=== PATIENT | male | born 1935 | race Caucasian/White ===

== ENCOUNTER 2017-04-19 23:40 | Inpatient (IN) | payer OTHER, MEDICARE ==
[~2017-04-19] VITALS: Ht 185.4 cm; Wt 128.3 kg
[2017-04-20 03:02] VITALS: BP 139/81; PULSE 109; RESP 20; TEMP 97.7
[2017-04-20] MEDS ORDERED: ALUMINUM/MAGNESIUM/SIMETH 30 ML CUP PO PRN (03:15)
[2017-04-20] MEDS ORDERED: LORazepam 2 MG/ML VIAL - age > 65 yrs IM PRN (03:15)
[2017-04-20] MEDS ORDERED: MAGNESIUM HYDROXIDE SUSP 30 ML CUP PO PRN (03:15)
[2017-04-20] MEDS ORDERED: LORazepam 0.5 MG TAB age > 65 yrs PO PRN (03:15)
[2017-04-20 05:35] VITALS: BP 166/84; PULSE 89; RESP 16; TEMP 97.1
[2017-04-20 10:16] LABS: AUTOMATED NEUTROPHIL # 4.3 TH/MM3 (1.8-7.7); BASOPHIL % 0.6 % (0.0-2.0); EOSINOPHIL # 0.3 TH/MM3 (0-0.4); EOSINOPHIL % 5.3 % (0.0-4.0); HEMATOCRIT 36.7 % (39.0-51.0); HEMO FLAGS DIFF FINAL; LYMPH % 19.7 % (9.0-44.0); LYMPHOCYTE # 1.3 TH/MM3 (1.0-4.8); MEAN CELL VOLUME 93.8 FL (80.0-100.0); MEAN CORPUSCULAR HEMOGLOBIN 31.5 PG (27.0-34.0); MEAN CORPUSCULAR HGB CONC 33.6 % (32.0-36.0); MONO % 8.6 % (0.0-8.0); NEUT % 65.8 % (16.0-70.0); PLATELET COUNT 314 TH/MM3 (150-450); RED BLOOD COUNT 3.91 MIL/MM3 (4.50-5.90); WHITE BLOOD COUNT 6.5 TH/MM3 (4.0-11.0)
[2017-04-20 10:33] LABS: ANION GAP 10 MEQ/L (5-15); AST (GOT) 26 U/L (15-37); BICARBONATE 25.9 MEQ/L (21.0-32.0); BLOOD UREA NITROGEN 13 MG/DL (7-18); CHLORIDE 103 MEQ/L (98-107); GLOMERULAR FILTRATION RATE 40 ML/MIN (>89); POTASSIUM 3.9 MEQ/L (3.5-5.1); SODIUM (NA) 139 MEQ/L (136-145)
[2017-04-20 10:34] LABS: ALT (GPT) 29 U/L (12-78)
[2017-04-20 10:44] LABS: ALKALINE PHOSPHATASE 109 U/L (45-117); HDL CHOLESTEROL 40.6 MG/DL (40.0-60.0); LDL CHOLESTEROL 131 MG/DL (0-99); TOTAL BILIRUBIN ADULT 0.4 MG/DL (0.2-1.0)
[2017-04-20] MEDS ORDERED: SERTRALINE HCL 50 MG TAB PO ONE (13:00)
[2017-04-20] MEDS ORDERED: PILL SPLITTER OTHER PRN (13:00)
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
--- NOTE | 2017-04-20 13:07 | EKG ---
Date Performed: 04/20/2017 Time Performed: 11:11:41 PTAGE: 81 years EKG: Sinus rhythm WITH FIRST DEGREE AV BLOCK PATTERN CONSISTENT WITH PULMONARY DISEASE LEFT ANTERIOR FASCICULAR BLOCK ABNORMAL ECG NO PREVIOUS TRACING DOCTOR: Juanpablo Em Interpretating Date/Time 04/20/2017 13:06:38
--- NOTE | 2017-04-20 13:29 | PD.CONS ---
[facility] Reason for Consult Medical management Primary Care Physician Terry Blancas D.O. Diagnoses: History of Present Illness 81 year-old male with past medical history of hypertension, diabetes was brought in and admitted to inpatient psychiatry under [place] act for suicidal ideation. Patient states he has been trying to harm himself however denies any homicidal ideation. He owns firearms in his apartment. Reported history of diabetes, hypertension for which he is under the care of his PCP however patient does not know which medication he is on. He currently denies any GI bleed, hemoptysis, hematuria. He also denies any chest pain or shortness of breath. Review of Systems Except as stated in HPI: all other systems reviewed are Neg Past Family Social History Allergies: Coded Allergies: No Known Allergies (Verified Allergy, Unknown, 04/20/17) Past Medical History Diabetes type 2 Hypertension Past Surgical History Hernia repair Right Toe amputation Abdominal surgery Social History Former smoker, reports social alcohol intake. Lives alone Physical Exam Vital Signs Vital Signs Date Time Temp Pulse Resp B/P (MAP) Pulse Ox O2 Delivery O2 Flow Rate FiO2 04/20/17 05:35 97.1 89 16 166/84 (111) 04/20/17 03:02 97.7 109 20 139/81 (100) Physical Exam GENERAL: This is a well-nourished, well-developed patient, in no apparent distress. SKIN: No rashes, ecchymoses or lesions. Cool and dry. HEAD: Atraumatic. Normocephalic. No temporal or scalp tenderness. EYES: Pupils equal round and reactive. Extraocular motions intact. No scleral icterus. No injection or drainage. ENT: Nose without bleeding, purulent drainage or septal hematoma. Throat without erythema, tonsillar hypertrophy or exudate. Uvula midline. Airway patent. NECK: Trachea midline. No JVD or lymphadenopathy. Supple, nontender, no meningeal signs. CARDIOVASCULAR: Regular rate and rhythm without murmurs, gallops, or rubs. RESPIRATORY: Clear to auscultation. Breath sounds equal bilaterally. No wheezes , rales, or rhonchi. GASTROINTESTINAL: Abdomen soft, non-tender, nondistended. No hepato-splenomegaly , or palpable masses. No guarding. MUSCULOSKELETAL: Extremities without clubbing, cyanosis, or edema. No joint tenderness, effusion, or edema noted. No calf tenderness. Negative Homans sign bilaterally. NEUROLOGICAL: Awake and alert. Cranial nerves II through XII intact. Motor and sensory grossly within normal limits. Five out of 5 muscle strength in all muscle groups. Normal speech. Laboratory Laboratory Tests Test 04/20/17 08:00 White Blood Count 6.5 Red Blood Count 3.91 Hemoglobin 12.3 Hematocrit 36.7 Mean Corpuscular Volume 93.8 Mean Corpuscular Hemoglobin 31.5 Mean Corpuscular Hemoglobin Concent 33.6 Red Cell Distribution Width 14.0 Platelet Count 314 Mean Platelet Volume 8.7 Neutrophils (%) (Auto) 65.8 Lymphocytes (%) (Auto) 19.7 Monocytes (%) (Auto) 8.6 Eosinophils (%) (Auto) 5.3 Basophils (%) (Auto) 0.6 Neutrophils # (Auto) 4.3 Lymphocytes # (Auto) 1.3 Monocytes # (Auto) 0.6 Eosinophils # (Auto) 0.3 Basophils # (Auto) 0.0 CBC Comment DIFF FINAL Differential Comment Blood Urea Nitrogen 13 Creatinine 1.65 Random Glucose 185 Total Protein 6.5 Albumin 2.5 Calcium Level 8.8 Alkaline Phosphatase 109 Aspartate Amino Transf (AST/SGOT) 26 Alanine Aminotransferase (ALT/SGPT) 29 Total Bilirubin 0.4 Sodium Level 139 Potassium Level 3.9 Chloride Level 103 Carbon Dioxide Level 25.9 Anion Gap 10 Estimat Glomerular Filtration Rate 40 Triglycerides Level 202 Cholesterol Level 212 LDL Cholesterol 131 HDL Cholesterol 40.6 Cholesterol/HDL Ratio 5.22 Thyroid Stimulating Hormone 3rd Gen 11.800 Result Diagram: 04/20/17 0800 04/20/17 0800 Assessment and Plan Assessment and Plan 81 year-old man with Adjustment disorder Suicidal ideation Management per psychiatry Continue current [place] act History of diabetes type 2 Check hemoglobin A1c Start insulin sliding scale Obtain from patient's pharmacy medication list Hypothyroidism Start patient on low-dose Synthroid Check free T4 Hypertension Start clonidine when necessary Obtain from patient's pharmacy medication list Hyperlipidemia LDL 131 Check LFTs and then start statin DVT prophylaxis: Encourage ambulation Request from the nurse that patient's medication list be updated Thank you for this consultation Code Status Full code Discussed Condition With Patient, Howard Xiong RN, MD Apr 20, 2017 13:29
[2017-04-20] MEDS ORDERED: RESP: ALBUTEROL 2.5 MG/IPRATROPIUM 0.5 MG NEB (PRN) NEB (13:30)
[2017-04-20] MEDS ORDERED: DEXTROSE 50% IN WATER 50 ML VIAL(D50) IV PUSH PRN (13:30)
[2017-04-20] MEDS ORDERED: cloNIDine HCL 0.1 MG TAB PO PRN (13:30)
[2017-04-20] MEDS ORDERED: GLUCAGON 1 MG/ML VIAL OTHER PRN (13:30)
[2017-04-20] MEDS ORDERED: FURO1TAB62 PO (13:52)
[2017-04-20] MEDS ORDERED: PAXI30TA7 PO (13:52)
[2017-04-20] MEDS ORDERED: METF1000 PO (13:52)
[2017-04-20] MEDS ORDERED: GABA600T PO (13:52)
[2017-04-20] MEDS ORDERED: GABA300C5 PO (13:52)
[2017-04-20] MEDS ORDERED: LEVEMIR SQ (13:53)
[2017-04-20 14:34] VITALS: BP 135/70; PULSE 72
[2017-04-20] MEDS: INSULIN ASPART SUPPLEMENTAL SCALE SQ SCH ×2 (16:06→20:36)
[2017-04-20] MEDS ORDERED: metFORMIN HCL 500 MG TAB PO SCH (18:00)
[2017-04-20 18:16] VITALS: BP 120/60; PULSE 93; RESP 16; TEMP 98.5; O2SAT 98
[2017-04-20] MEDS: INSULIN DETEMIR 100 UNITS/ML VIAL SQ SCH (20:36)
[2017-04-20] MEDS: GABAPENTIN 300 MG CAP PO SCH (20:37)
[2017-04-20] MEDS ORDERED: diphenhydrAMINE HCL 50 MG CAP PO PRN (21:00)
[2017-04-21 05:34] VITALS: BP 149/88; PULSE 85; RESP 16; TEMP 98; O2SAT 97
[2017-04-21] MEDS: LEVOTHYROXINE SODIUM 88 MCG TAB PO SCH (06:03)
[2017-04-21] MEDS: INSULIN ASPART SUPPLEMENTAL SCALE SQ SCH ×4 (08:00→20:40)
[2017-04-21] MEDS: FUROSEMIDE 20 MG TAB PO SCH (08:33)
[2017-04-21] MEDS: GABAPENTIN 300 MG CAP PO SCH ×2 (08:33→20:40)
[2017-04-21] MEDS: SERTRALINE HCL 50 MG TAB PO SCH (08:33)
[2017-04-21] MEDS: INSULIN DETEMIR 100 UNITS/ML VIAL SQ SCH ×2 (08:33→20:39)
--- NOTE | 2017-04-21 14:13 | HHI.PR ---
Subjective Remarks patient seen and examined complains of weakness and no shortness of breath Good appetite ambulating fine Objective Vitals Vital Signs Date Time Temp Pulse Resp B/P (MAP) Pulse Ox O2 Delivery O2 Flow Rate FiO2 04/21/17 05:34 98.0 85 16 149/88 (108) 97 04/20/17 18:16 98.5 93 16 120/60 (80) 98 04/20/17 14:34 72 135/70 (91) I/O 04/20/17 04/20/17 04/20/17 04/21/17 04/21/17 04/21/17 07:00 15:00 23:00 07:00 15:00 23:00 Intake Total 480 ml Balance 480 ml Intake Oral 480 ml Result Diagram: 04/20/17 0800 04/20/17 0800 Objective Remarks GENERAL: NAD SKIN: Warm and dry. HEAD: Normocephalic. EYES: No scleral icterus. No injection or drainage. NECK: Supple, trachea midline. No JVD or lymphadenopathy. CARDIOVASCULAR: Regular rate and rhythm without murmurs, gallops, or rubs. RESPIRATORY: Breath sounds equal bilaterally. No accessory muscle use. GASTROINTESTINAL: Abdomen soft, non-tender, nondistended. MUSCULOSKELETAL: No cyanosis, or edema. BACK: Nontender without obvious deformity. No CVA tenderness. A/P Assessment and Plan 81 year-old man with Adjustment disorder Suicidal ideation Management per psychiatry Continue current [place] act History of diabetes type 2 Check hemoglobin A1c Continue insulin sliding scale Hypothyroidism On low-dose Synthroid Check free T4 Hypertension continue clonidine when necessary Hyperlipidemia LDL 131 Check LFTs and then start statin DVT prophylaxis: Encourage ambulation Howard To MD Apr 21, 2017 14:13
[2017-04-21 15:52] LABS: HEMOGLOBIN A1a 1.3 %; HEMOGLOBIN A1b 1.3 %; HEMOGLOBIN Ao 75.7 %; HEMOGLOBIN F 1.9 %; HEMOGLOBIN LA1C 2.6 %; HEMOGLOBIN P3 4.2 %
[2017-04-21] MEDS ORDERED: hydrOXYzine HCL 50 MG TAB PO PRN (16:00)
--- NOTE | 2017-04-21 16:00 | HHI.PYPN ---
Subjective Remarks Patient initial psychiatric evaluation the by Dr. Mcmahon, I have completed the initial psychiatric admission template. Patient seen by me in day room with nurse Dax, patient's is alert fairly well oriented white male appears stated age sitting calmly in his Jo[place] chair. He acknowledges his depression acknowledges is suicidal intent that he would take the suicide pill if offered. She has been depressed since the of his and from 1997. They have no children his own support is a brother who lives nearby. He is compliant with his medications. For now continue treatment Review of Systems Except as stated in HPI: all other systems reviewed are Neg Mental Status Examination Appearance: Disheveled Orientation: Person, Place Speech: Unremarkable Language: Neologism Fund of Knowledge: Adequate Attention and Concentration: Adequate Memory: Unremarkable Mood: Sad Affect: Sad Thought Process & Associations: Intact, Linear Thought Content: Appropriate Hallucination Type: None Delusion Type: None Suicidal Ideation: Yes Suicidal Plan: No Suicidal Intention: Yes Homicidal Ideation: No Homicidal Plan: No Homicidal Intention: No Insight: Fair Judgment: Impulsive Results Labs Test 04/21/17 13:30 Vitals/IOs Vital Signs Date Time Temp Pulse Resp B/P (MAP) Pulse Ox O2 Delivery O2 Flow Rate FiO2 04/21/17 05:34 98.0 85 16 149/88 (108) 97 Assessment & Plan Problem List: (1) Severe episode of recurrent major depressive disorder, without psychotic features ICD Codes: F33.2 - Major depressive disorder, recurrent severe without psychotic features Assessment & Plan Estimated LOS: days patient depressed and suicidal would take the suicide pill if offered. Compliant medications. Justification for Cont. Inpt. At this time patient will decompensate and placed in a lower level of care Discharge Planning Patient wishes to inquire as to when CUSTODIAL or some type of supportive housing Request HC Surrog/Guard Advoc?: No Terry Plunkett MD Apr 21, 2017 15:59
--- NOTE | 2017-04-21 16:08 | PD.TTN ---
Patient Problems 1. Discharge planning 2. Medication compliance 3. Knowledge deficit 4. Lack of coping skills Progress Toward Goals Provider Present: Dr. Daren Michel Provider Input: Patient is a new admission and has not been evaluated yet. Psychiatric Counselors Present: RODDY Espino Psych Therapist Input: Patient is a new admission and biopsychosocial assessment will be completed today. Group Spec/RT/OT/BATRES Present: MEDARDO Oneil Documentation Scribe: RODDY Espino Date Resolved: Apr 21, 2017 Caroline Lee Apr 21, 2017 16:08
[2017-04-21 18:00] VITALS: BP 123/58; PULSE 74; RESP 17; TEMP 97.5; O2SAT 99
[2017-04-22 05:18] VITALS: BP 135/66; PULSE 84; RESP 18; TEMP 97.8; O2SAT 97
[2017-04-22] MEDS: LEVOTHYROXINE SODIUM 88 MCG TAB PO SCH (05:47)
[2017-04-22] MEDS: INSULIN ASPART SUPPLEMENTAL SCALE SQ SCH ×4 (08:00→20:34)
[2017-04-22] MEDS: SERTRALINE HCL 50 MG TAB PO SCH (09:43)
[2017-04-22] MEDS: FUROSEMIDE 20 MG TAB PO SCH (09:43)
[2017-04-22] MEDS: GABAPENTIN 300 MG CAP PO SCH ×2 (09:44→20:19)
[2017-04-22] MEDS: ATORVASTATIN 10 MG TAB PO SCH (09:44)
[2017-04-22] MEDS: INSULIN DETEMIR 100 UNITS/ML VIAL SQ SCH (09:50)
--- NOTE | 2017-04-22 13:21 | HHI.PYPN ---
Subjective Remarks Patient seen in the day room with nurse Dax and counselor Caroline, chart review patient compliant medication. Patient is calm pleasant somewhat diffusely confused but no behavioral issues. Still verifying his suicidal ideation intent. Feels that there is nothing left for him. That he has done everything in the world that he wanted to do. Review of Systems Except as stated in HPI: all other systems reviewed are Neg Mental Status Examination Appearance: Disheveled Orientation: Person, Place Speech: Unremarkable Language: Neologism Fund of Knowledge: Adequate Attention and Concentration: Adequate Memory: Unremarkable Mood: Sad Affect: Sad Thought Process & Associations: Intact, Linear Thought Content: Appropriate Hallucination Type: None Delusion Type: None Suicidal Ideation: Yes Suicidal Plan: No Suicidal Intention: Yes Homicidal Ideation: No Homicidal Plan: No Homicidal Intention: No Insight: Fair Judgment: Impulsive Results Labs Test 04/21/17 13:30 Vitals/IOs Vital Signs Date Time Temp Pulse Resp B/P (MAP) Pulse Ox O2 Delivery O2 Flow Rate FiO2 04/22/17 05:18 97.8 84 18 135/66 (89) 97 Intake and Output 04/22/17 04/22/17 04/23/17 08:00 16:00 00:00 Intake Total 1 ml Balance 1 ml Assessment & Plan Problem List: (1) Severe episode of recurrent major depressive disorder, without psychotic features ICD Codes: F33.2 - Major depressive disorder, recurrent severe without psychotic features Assessment & Plan Estimated LOS: days patient continues depressed and suicidal, compliant medications. For now continue treatment Justification for Cont. Inpt. At this time patient would state the place to the lower level of care Discharge Planning Considering patient's significant suicidality finding appropriate placement may be difficult, independently living versus an [facility] or supportive housing type situation Request HC Surrog/Guard Advoc?: No Terry Plunkett MD Apr 22, 2017 13:21
--- NOTE | 2017-04-22 15:17 | HHI.PR ---
Subjective Remarks Follow up on patient with HTN, hypothyroidism, DM. Patient seen and examined. Patient denies any complaints. No fever or chills. No chest pain or dyspnea. No N/V or abdominal pain. He does report some lower leg swelling but states it resolves when he elevated his legs. He states he stopped taking his medications for several months prior to his admission. Objective Vitals Vital Signs Date Time Temp Pulse Resp B/P (MAP) Pulse Ox O2 Delivery O2 Flow Rate FiO2 04/22/17 05:18 97.8 84 18 135/66 (89) 97 04/21/17 18:00 97.5 74 17 123/58 (79) 99 I/O 04/21/17 04/21/17 04/21/17 04/22/17 04/22/17 04/22/17 07:00 15:00 23:00 07:00 15:00 23:00 Intake Total 1800 ml 1 ml Balance 1800 ml 1 ml Intake Oral 1800 ml 1 ml # Voids 2 1 Result Diagram: 04/20/17 0800 04/20/17 0800 Objective Remarks GENERAL: Well-nourished, well-developed patient in NAD. Awake and alert. Sitting in chair in the day room. SKIN: Warm and dry. Left frontal scalp nodule noted. HEAD: Normocephalic. Atraumatic. EYES: Pupils equal and round. No scleral icterus. No injection or drainage. ENT: No nasal bleeding or discharge. Mucous membranes pink and moist. NECK: Supple. Trachea midline. CARDIOVASCULAR: Regular rate and rhythm. S1, S2 noted. No murmur appreciated. RESPIRATORY: Nonlabored. Clear to auscultation. Breath sounds equal bilaterally. GASTROINTESTINAL: Abdomen soft, non-tender, nondistended. Normoactive bowel sounds x4. MUSCULOSKELETAL: No obvious deformities. Extremities without clubbing or cyanosis. 1+ BLE edema. NEUROLOGICAL: Awake and alert. Able to move all extremities spontaneously. Nonfocal. Normal speech. Medications and IVs Current Medications Medications (Trade) Dose Ordered Sig/Crystal Route Start Time Stop Time Status Last Admin (Ativan) 0.5 mg Q12H PRN PO 04/20/17 03:15 Future hold (Ativan Inj) 0.5 mg Q12H PRN IM 04/20/17 03:15 Future hold (Tylenol) 650 mg Q4H PRN PO 04/20/17 03:15 (Milk Of Magnesia Liq) 30 ml DAILY PRN PO 04/20/17 03:15 (Mag-Al Plus Susp Liq) 30 ml Q6H PRN PO 04/20/17 03:15 (Zoloft) 50 mg DAILY PO 04/21/17 09:00 04/22/17 09:43 (Benadryl) 50 mg HS PRN PO 04/20/17 21:00 (Pill Splitter) 1 ea UNSCH PRN OTHER 04/20/17 13:00 (D50w (Vial) Inj) 50 ml UNSCH PRN IV PUSH 04/20/17 13:30 (Glucagon Inj) 1 mg UNSCH PRN OTHER 04/20/17 13:30 (NovoLOG SUPPLEMENTAL SCALE) 1 ACHS SLIDING SCALE SQ 04/20/17 17:00 04/22/17 11:19 (Synthroid) 88 mcg DAILY@0600 PO 04/21/17 06:00 04/22/17 05:47 (Catapres) 0.1 mg Q6H PRN PO 04/20/17 13:30 (Duoneb Neb) 1 ampule Q2HR NEB PRN NEB 04/20/17 13:30 (Lasix) 20 mg DAILY PO 04/21/17 09:00 04/22/17 09:43 (Neurontin) 300 mg BID PO 04/20/17 21:00 04/22/17 09:44 (Levemir Inj) 18 units BID SQ 04/20/17 21:00 04/22/17 09:50 (Glucophage) 1,000 mg BIDPC PO 04/20/17 18:00 Future Hold (Atarax) 50 mg Q6H PRN PO 04/21/17 16:00 (Lipitor) 10 mg DAILY PO 04/22/17 09:00 04/22/17 09:44 A/P Assessment and Plan 81 year-old man with HTN, hypothyroidism, adjustment d/o and DM admitted to inpatient psychiatry under [place] Act and asked to be seen in consultation by medicine team for medical management. Adjustment disorder Suicidal ideation Management per psychiatry Continue current Witt act continue with PT/recommending home with [facility] PT History of diabetes type 2 Uncontrolled Hemoglobin A1c 12.4 hold home dose of Metformin due to kidney function. BS 84 this am. Hold home dose of Levemir for now. Continue accuchecks and insulin sliding scale LOULOU on ?CKD baseline creatinine/GFR unknown creatinine 1.65/GFR 40 hold home dose of Metformin May need to hold home dose of Lasix avoid nephrotoxic agents repeat BMP Hypothyroidism Started on low-dose Synthroid TSH 11.80, free T4 0.84 patient will need to follow up with PCP in 6-8 weeks and have TSH level checked Hypertension controlled continue clonidine when necessary Left frontal scalp nodule suspect sebaceous cyst or lipoma follow up with PCP as outpatient to monitor BLE edema continue on Lasix 20mg daily monitor electrolytes intermittently elevate legs when possible Hyperlipidemia LDL 131 LFTs WNL. Started on Lipitor 10mg daily patient will need to follow up with PCP and repeat lipid panel as outpatient DVT prophylaxis: Encourage ambulation Leigha Molina Apr 22, 2017 15:17
[2017-04-22 15:48] LABS: BICARBONATE 31.5 MEQ/L (21.0-32.0); POTASSIUM 4.8 MEQ/L (3.5-5.1)
[2017-04-22 17:25] LABS: UR UREA/CREAT RATIO 6.19 mg/mg
[2017-04-22 17:55] VITALS: BP 117/60; PULSE 92; RESP 18; TEMP 97.6; O2SAT 98
[2017-04-22] MEDS: ACETAMINOPHEN 325 MG TAB PO PRN (23:02)
[2017-04-23 05:54] VITALS: BP 134/59; PULSE 84; RESP 18; TEMP 97.4; O2SAT 99
[2017-04-23] MEDS: LEVOTHYROXINE SODIUM 88 MCG TAB PO SCH (06:21)
[2017-04-23] MEDS: INSULIN ASPART SUPPLEMENTAL SCALE SQ SCH ×4 (08:00→20:58)
[2017-04-23] MEDS: FUROSEMIDE 20 MG TAB PO SCH (08:26)
[2017-04-23] MEDS: SERTRALINE HCL 50 MG TAB PO SCH (08:26)
[2017-04-23] MEDS: GABAPENTIN 300 MG CAP PO SCH ×2 (08:26→20:58)
[2017-04-23] MEDS: ATORVASTATIN 10 MG TAB PO SCH (08:26)
[2017-04-23] MEDS: ACETAMINOPHEN 325 MG TAB PO PRN ×2 (08:34→20:59)
--- NOTE | 2017-04-23 10:44 | HHI.PR ---
Subjective Remarks reports diarrhea- states still ongoing though cant remeber when it started not sure whether he was on antibiotics lives alone and usually cooks for self reports of frequent falls, ambulating in unit reports he takes both insulin and pills at home- BS has been low here and thus were on hold reports decreased appetite but denies dysphagia Objective Vital Signs Date Time Temp Pulse Resp B/P (MAP) Pulse Ox O2 Delivery O2 Flow Rate FiO2 04/23/17 05:54 97.4 84 18 134/59 (84) 99 04/23/17 00:02 18 04/22/17 17:55 97.6 92 18 117/60 (79) 98 I/O 04/22/17 04/22/17 04/22/17 04/23/17 04/23/17 04/23/17 07:00 15:00 23:00 07:00 15:00 23:00 Intake Total 1 ml 240 ml 0 ml 600 ml Balance 1 ml 240 ml 0 ml 600 ml Intake Oral 1 ml 240 ml 0 ml 600 ml # Voids 1 2 2 Result Diagram: 04/20/17 0800 04/22/17 1441 Objective Remarks left forehead sabceous cyst dry scaly skin clear lungs regular heart rate and rhythm , no murmur bilateral LE dry skin, mild swelling, right toe amputation, uses a walker to ambulate, somewhat unsteady gait awake, alert, present, ambulating without assistance, no focal deficit, normal speech A/P Assessment and Plan Impression: hypoglycemia diarrhea depression hypothyrodism- new diagnosis hx of frequent falls Plan: check stool for cx and cdiff resume rest of current meds for now pt's metformin has been on hold while in hospital fingersticks reveals low BS his levemir was also on hold during hospitalization for most part dvt prophylaxis with ambulation I Discharge Planning per psychiatry Preeti Yeager MD Apr 23, 2017 10:44
--- NOTE | 2017-04-23 11:38 | HHI.PYPN ---
Subjective Remarks Patient seen in his room with nurse Kindra, patient sitting in chair by window there sitter in room with him. Patient remains depressed, states would still take the suicide pill if offered it. Remains hopeless and helpless, however it appears she still may be willing to go to some type of an [facility] or structured living arrangement. Will get OT referral and assessment Review of Systems Except as stated in HPI: all other systems reviewed are Neg Mental Status Examination Appearance: Disheveled Orientation: Person, Place Speech: Unremarkable Language: Neologism Fund of Knowledge: Adequate Attention and Concentration: Adequate Memory: Unremarkable Mood: Sad Affect: Sad Thought Process & Associations: Intact, Linear Thought Content: Appropriate Hallucination Type: None Delusion Type: None Suicidal Ideation: Yes Suicidal Plan: No Suicidal Intention: Yes Homicidal Ideation: No Homicidal Plan: No Homicidal Intention: No Insight: Fair Judgment: Impulsive Results Labs Test 04/22/17 14:41 Blood Urea Nitrogen 19 MG/DL Creatinine 1.56 MG/DL Random Glucose 134 MG/DL Calcium Level 8.9 MG/DL Sodium Level 139 MEQ/L Potassium Level 4.8 MEQ/L Chloride Level 105 MEQ/L Carbon Dioxide Level 31.5 MEQ/L Anion Gap 3 MEQ/L Estimat Glomerular Filtration Rate 43 ML/MIN Vitals/IOs Vital Signs Date Time Temp Pulse Resp B/P (MAP) Pulse Ox O2 Delivery O2 Flow Rate FiO2 04/23/17 05:54 97.4 84 18 134/59 (84) 99 Intake and Output 04/23/17 04/23/17 04/24/17 08:00 16:00 00:00 Intake Total 600 ml Balance 600 ml Assessment & Plan Problem List: (1) Severe episode of recurrent major depressive disorder, without psychotic features ICD Codes: F33.2 - Major depressive disorder, recurrent severe without psychotic features Assessment & Plan Estimated LOS: days patient remains depressed hopeless helpless and suicidal. Compliant medications. We'll get OT referral Justification for Cont. Inpt. At this time patient will decompensate and placed in a lower level of care Discharge Planning Placement range problematic patient probably benefit from a structured environment such as an [facility] or group living situation Request HC Surrog/Guard Advoc?: No Terry Plunkett MD Apr 23, 2017 11:38
--- NOTE | 2017-04-23 11:49 | PD.TTN ---
Patient Problems 1. Discharge planning 2. Medication compliance 3. Knowledge deficit 4. Lack of coping skills Progress Toward Goals Provider Present: Dr. Yury Plunkett Provider Input: 04/23/2017;per doctor patient is being assess for medication adjustment and change Patient is a new admission and has not been evaluated yet. Nurse(s) Present: FREEDOM Arguelles Nurse(s) Input: 04/23/2017 Patient is no behavior, eating and taking meds; requesting placement into an [facility] Psychiatric Counselors Present: DONITA Cash Psych Therapist Input: 04/23/17; counselor will fax PENITENTIARY package Patient is a new admission and biopsychosocial assessment will be completed today. Group Spec/RT/OT/BATRES Present: MEDARDO Gracia Group Spec/RT/OT/BATRES Input: Patient is not participating with groups or activities; OT assessment requested Documentation Scribe: DONIAT Cash Date Resolved: Apr 21, 2017 Janna Elliott Apr 23, 2017 11:49
[2017-04-23 18:00] VITALS: BP 125/59; PULSE 87; RESP 18; TEMP 97.6; O2SAT 98
[2017-04-24] MEDS: LEVOTHYROXINE SODIUM 88 MCG TAB PO SCH (06:00)
[2017-04-24 06:22] VITALS: BP 126/58; PULSE 88; RESP 16; TEMP 97.9; O2SAT 96
[2017-04-24] MEDS: INSULIN ASPART SUPPLEMENTAL SCALE SQ SCH ×4 (08:00→21:00)
[2017-04-24] MEDS: FUROSEMIDE 20 MG TAB PO SCH (08:09)
[2017-04-24] MEDS: GABAPENTIN 300 MG CAP PO SCH ×2 (08:09→21:06)
[2017-04-24] MEDS: ATORVASTATIN 10 MG TAB PO SCH (08:09)
[2017-04-24] MEDS: SERTRALINE HCL 50 MG TAB PO SCH (08:10)
--- NOTE | 2017-04-24 09:08 | HHI.PR ---
Subjective Remarks Patient is seen lying in bed. He is asking for meat loaf and potato for lunch. Both the patient and nursing home assistant at the bedside stated that patient's diarrhea is resolved and his stool is well formed which was witnessed by the nursing home assistant. Patient denies any other symptoms overnight. Chart reviewed. Objective Vitals Vital Signs Date Time Temp Pulse Resp B/P (MAP) Pulse Ox O2 Delivery O2 Flow Rate FiO2 04/24/17 06:22 97.9 88 16 126/58 (80) 96 04/23/17 18:00 97.6 87 18 125/59 (81) 98 I/O 04/23/17 04/23/17 04/23/17 04/24/17 04/24/17 04/24/17 07:00 15:00 23:00 07:00 15:00 23:00 Intake Total 0 ml 1080 ml 1440 ml 120 ml Balance 0 ml 1080 ml 1440 ml 120 ml Intake Oral 0 ml 1080 ml 1440 ml 120 ml # Voids 2 3 Result Diagram: 04/20/17 0800 04/22/17 1441 Objective Remarks GENERAL: This is a well-nourished, well-developed patient, in no apparent distress. SKIN: No rashes, ecchymoses or lesions. Cool and dry. HEAD: Atraumatic. Normocephalic. No temporal or scalp tenderness. EYES: No scleral icterus. No injection or drainage. ENT: Nose without bleeding, purulent drainage or septal hematoma. Airway patent. NECK: Trachea midline. No JVD CARDIOVASCULAR: Regular rate and rhythm without murmurs, gallops, or rubs. RESPIRATORY: Clear to auscultation. Breath sounds equal bilaterally. No wheezes , rales, or rhonchi. GASTROINTESTINAL: Abdomen soft, non-tender, nondistended. No guarding. MUSCULOSKELETAL: Extremities without clubbing, cyanosis. No calf tenderness. Bilateral lower extremity 1+ pitting edema up to mid calf. NEUROLOGICAL: Awake and alert. Motor and sensory grossly within normal limits Evangelist with a walker Somewhat unsteady gait Normal speech. A/P Assessment and Plan Impression: hypoglycemia diarrhea depression hypothyrodism- new diagnosis hx of frequent falls Plan: Patient's diarrhea has resolved. It was well formed stool both per the nursing staff and patient. Therefore we will not send stool studies. pt's metformin has been on hold while in hospital fingersticks reveals low BS his levemir was also on hold during hospitalization for most part would recommend to dc pt on sliding scale coverage of insulin at home . will NOT continue his levemir and metformin at discharge. rubber tubing splicer to teach pt on sliding scale coverage - consulted today. However more than likely that this patient will be going to [facility] or custodial. pt to follow up with pcp to repeat thyroid function tests in 6 weeks, and check on home BS recordings in one week from discharge pt also has been on gabapentin 300mg po bid here- no worsening neuropathy, no drowsiness - thus would continue this dose at discharge d/c the night time dose of gabapentin 600mg po qhs at discharge- as he never required it and can cause drowsiness dvt prophylaxis with ambulation Patient is medically stable. We will sign off on the case. Discharge planning as above. Medication reconciliation for the above changes made. Discharge Planning Per psychiatry Preeti Yeager MD Apr 24, 2017 09:08
--- NOTE | 2017-04-24 10:19 | HHI.PYPN ---
Subjective Remarks Patient seen in his room with hipolito, and nurse Kindra, patient continues, pleasant with me continue somewhat vague but persistent about suicidality. Orbit appears patient's brother is working hard to find inappropriate placement perhaps in a health and rehabilitation facility. Patient compliant medications. For now continue treatment Review of Systems Except as stated in HPI: all other systems reviewed are Neg Mental Status Examination Appearance: Disheveled Orientation: Person, Place Speech: Unremarkable Language: Neologism Fund of Knowledge: Adequate Attention and Concentration: Adequate Memory: Unremarkable Mood: Sad Affect: Sad Thought Process & Associations: Intact, Linear Thought Content: Appropriate Hallucination Type: None Delusion Type: None Suicidal Ideation: Yes Suicidal Plan: No Suicidal Intention: Yes Homicidal Ideation: No Homicidal Plan: No Homicidal Intention: No Insight: Fair Judgment: Impulsive Results Vitals/IOs Vital Signs Date Time Temp Pulse Resp B/P (MAP) Pulse Ox O2 Delivery O2 Flow Rate FiO2 04/24/17 06:22 97.9 88 16 126/58 (80) 96 Intake and Output 04/24/17 04/24/17 04/25/17 08:00 16:00 00:00 Intake Total 120 ml 480 ml Balance 120 ml 480 ml Assessment & Plan Problem List: (1) Severe episode of recurrent major depressive disorder, without psychotic features ICD Codes: F33.2 - Major depressive disorder, recurrent severe without psychotic features Assessment & Plan Estimated LOS: days patient continues depressed, but voicing suicidal ideation and intent, compliant medications, no appears some slight improvement in his affect when discussing his brothers at times who find him an appropriate placement Justification for Cont. Inpt. At this time patient will decompensate if placed in a lower level of care Discharge Planning Staff is working patient brother to finding appropriate placement Request HC Surrog/Guard Advoc?: No Terry Plunkett MD Apr 24, 2017 10:19
[2017-04-24 18:18] VITALS: BP 119/76; PULSE 82; RESP 16; TEMP 98.1; O2SAT 96
[2017-04-24] MEDS: ACETAMINOPHEN 325 MG TAB PO PRN (21:07)
[2017-04-25] MEDS: LEVOTHYROXINE SODIUM 88 MCG TAB PO SCH (06:00)
[2017-04-25 06:01] VITALS: BP 117/59; PULSE 74; RESP 15; TEMP 97.4; O2SAT 96
[2017-04-25] MEDS: INSULIN ASPART SUPPLEMENTAL SCALE SQ SCH ×2 (07:43→11:46)
[2017-04-25] MEDS: GABAPENTIN 300 MG CAP PO SCH (09:23)
[2017-04-25] MEDS: FUROSEMIDE 20 MG TAB PO SCH (09:23)
[2017-04-25] MEDS: ATORVASTATIN 10 MG TAB PO SCH (09:24)
[2017-04-25] MEDS: SERTRALINE HCL 50 MG TAB PO SCH (09:24)
[2017-04-25] MEDS: ACETAMINOPHEN 325 MG TAB PO PRN (09:29)
[2017-04-25] MEDS ORDERED: LEVEMIR SQ (12:10)
[2017-04-25] MEDS ORDERED: FURO1TAB62 PO (12:10)
[2017-04-25] MEDS ORDERED: GABA300C5 PO (12:10)
[2017-04-25] MEDS ORDERED: ZOLO50TA PO (12:10)
[2017-04-25] MEDS ORDERED: METF1000 PO (12:10)
[2017-04-25] MEDS ORDERED: SYNT88TA PO (12:10)
[2017-04-25] MEDS ORDERED: LIPI10TA PO (12:10)
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
== END 2017-04-25 15:00 | disposition home or self-care (01) | DRG 885 ==
LOC: H250 04-20 02:32 → H4EA 04-22 17:30
PROVIDERS: ADMIT Psychiatry & Neurology Psychiatry; ATTEND Psychiatry & Neurology Psychiatry
DX: F33.2 Major depressive disorder, recurrent severe without psychotic features (principal); N17.9 Acute kidney failure, unspecified; E11.22 Type 2 diabetes mellitus with diabetic chronic kidney disease; R45.851 Suicidal ideations; E11.649 Type 2 diabetes mellitus with hypoglycemia without coma; I12.9 Hypertensive chronic kidney disease with stage 1 through stage 4 chronic kidney disease, or unspecified chronic kidney disease; N18.9 Chronic kidney disease, unspecified; F43.20 Adjustment disorder, unspecified; E03.9 Hypothyroidism, unspecified; R60.0 Localized edema; E78.5 Hyperlipidemia, unspecified; R19.7 Diarrhea, unspecified; R29.6 Repeated falls; Z79.4 Long term (current) use of insulin; Z87.891 Personal history of nicotine dependence; Z91.5 Personal history of self-harm
CPT/HCPCS: 80048; 80053; 80061; 82948; 83036; 84439; 84443; 84540; 85025; 93005; J1815